=== PATIENT | female | born 1945 | race Caucasian/White ===

== ENCOUNTER → 2017-09-07 | Outpatient (CLI) | payer MEDICARE, OTHER ==
[~2017-09-07] MED LIST: ASPI81EC PO; CALCAVITDA PO; FISH1000 PO; HYDRA25 PO; LISI20 PO; METF500 PO; OMEP20ER PO; POTCHL10ER PO; ROSU5 PO
== END | disposition home or self-care (01) ==
LOC: LAB SHORT 10:11 → PLD 10:11
DX: D22.61 Melanocytic nevi of right upper limb, including shoulder (principal)
CPT/HCPCS: 88305

== ENCOUNTER → 2025-01-17 | Outpatient (CLI) | payer OTHER ==
[~2025-01-17] MED LIST changes: +ALEN70 PO; +AMLO5 PO; +BISA5EC PO; +HYDCHL25 PO; +METHI10 PO; +ZYRTEC10 M2 PO
[2025-01-17 13:29] LABS: Creatinine, Urine Random 110.0 mg/dL (27.00-270.00); Microalb/Creat Ratio UR, Rand 98.182 mg/g (0.000-30.000); Microalbumin, Random Urine 108.0 mg/L (0.000-20.000)
== END ==
LOC: LAB 11:18 → LAB SHORT 11:18
PROVIDERS: Physician Assistant
DX: E11.42 Type 2 diabetes mellitus with diabetic polyneuropathy (principal)
CPT/HCPCS: 82043; 82570